=== PATIENT | male | born 1980 | race Caucasian/White ===

== ENCOUNTER 2023-09-16 01:46 | Emergency (ER) | payer OTHER ==
[2023-09-16 01:53] VITALS: BP 144/87; PULSE 80; RESP 18; TEMP 98.4; BMI 31.7
[2023-09-16] MEDS ORDERED: LIDOCAINE 4% PATCH TP ONE ×2 (02:20→02:27)
[2023-09-16] MEDS ORDERED: SODIUM CHLORIDE 0.9% 500 ML INFUS.BAG IV ONE (02:20)
[2023-09-16] MEDS ORDERED: KETOROLAC TROMETHAMINE 15 MG/ML VIAL IVPUSH ONE (02:20)
[2023-09-16] MEDS ORDERED: KETOROLAC TROMETHAMINE 15 MG/ML VIAL ONE (02:27)
[2023-09-16 02:59] LABS: BASO % 0.8 % (0-2.0); EOS % 0.1 % (0-4.5); HEMATOCRIT 39.7 % (35.4-49); HEMOGLOBIN 13.9 GM/dL (11.7-16.9); LYMPH % 8.6 % (8-40); MCH 30.3 pg (25.7-33.7); MCHC 35.1 g/dl (32.0-35.9); MEAN CELL VOLUME 86.4 fl (80-96); MEAN PLT VOLUME 7.9 fl (7.5-11.1); MONO % 3.5 % (3.8-10.2); PLATELET COUNT 299 10^3/uL (134-434); RDW 13.8 % (11.9-15.9); WHITE BLOOD COUNT 7.8 K/mm3 (4.0-10.0)
[2023-09-16 03:18] LABS: POTASSIUM 4.1 mmol/L (3.5-5.1)
[2023-09-16 03:27] LABS: BILIRUBIN,TOTAL 0.2 mg/dL (0.2-1); TOT PROT 7.7 g/dl (6.4-8.2)
[2023-09-16 03:28] LABS: PH,URINE 6.5 (5.0-8.0); URINE APPEARANCE CLEAR; URINE BILIRUBIN NEGATIVE (NEGATIVE); URINE COLOR YELLOW; URINE GLUCOSE (UA) NEGATIVE (NEGATIVE); URINE KETONE NEGATIVE (NEGATIVE)
[2023-09-16 03:29] LABS: URINE LEUK ESTERASE NEGATIVE (NEGATIVE); URINE NITRITE NEGATIVE (NEGATIVE); URINE PROTEIN NEGATIVE (NEGATIVE); URINE UROBILINOGEN 0.2 mg/dL (0.2-1.0)
== END 2023-09-16 03:54 | disposition home or self-care (01) ==
LOC: JER 01:46
PROC: 3E033NZ Introduction of Analgesics, Hypnotics, Sedatives into Peripheral Vein, Percutaneous Approach (ICD-10-PCS; principal; 2023-09-16)
DX: N23 Unspecified renal colic (principal); N20.0 Calculus of kidney
CPT/HCPCS: 36415; 80053; 81003; 85025; 87086; 99284-25

== ENCOUNTER 2023-11-23 04:19 | Day surgery (SDC) | payer OTHER ==
[2023-11-19 08:39] VITALS: BMI 31.4
[2023-11-23 10:37] VITALS: RESP 18
[2023-11-23] MEDS ORDERED: ONDANSETRON 4 MG/2 ML VIAL ONE (13:33)
[2023-11-23] MEDS ORDERED: MIDAZOLAM HCL 2 MG/2 ML SINGLE DOSE VIAL ONE (13:33)
[2023-11-23 16:13] VITALS: BP 114/68; PULSE 60; TEMP 97.8
== END 2023-11-23 15:30 | disposition home or self-care (01) ==
LOC: JASU-SURG 04:19
PROVIDERS: ATTEND Urology
PROC: 0TF7XZZ Fragmentation in Left Ureter, External Approach (ICD-10-PCS; principal; 2023-11-23 12:00)
DX: N20.0 Calculus of kidney (principal)